=== PATIENT | female | born 1945 | race Caucasian/White ===

== ENCOUNTER 2016-09-02 12:33 | Emergency (ER) | payer OTHER ==
[2016-09-02 13:13] VITALS: BP 149/82
--- NOTE | 2016-09-02 14:24 | RAD ---
INDICATION: Lower extremity injury COMPARISON: None TECHNIQUE: AP, lateral, and oblique views were obtained. FINDINGS: The bony structures, joint spaces, and soft tissues are normal for age. IMPRESSION: NO ACUTE BONY FINDINGS OF THE LOWER LEG.
--- NOTE | 2016-09-02 14:24 | RAD ---
INDICATION: Left ankle injury COMPARISON: None TECHNIQUE: AP, lateral, and oblique views were obtained. FINDINGS: There is no acute bony change. There are corticated ossific densities about both medial and lateral malleolar I and there are mild irregular is about the lateral talar dome. A small osteochondral type injury is not excluded. There is a large plantar calcaneal spur. There is an effusion. IMPRESSION: EVIDENCE OF OLD POST TRAUMATIC INJURY. POSSIBLE OSTEOCHONDRAL TYPE INJURY LATERAL TALAR DOME.
--- NOTE | 2016-09-02 16:03 | UC ---
Lower Extremity/Ankle HPI - HPI Summary HPI Summary: left lateral ankle painhas been going on for 2 weeks with swelling after falling while mowing the lawn - History of Current Complaint Hx Obtained From: Patient Hx Last Menstrual Period: POST MENOPAUSE ?: No Onset/Duration: Sudden Onset, Still Present Severity Initially: Moderate Severity Currently: Moderate Pain Intensity: 4 Pain Scale Used: 0-10 Numeric Aggravating Factor(s): Standing, Ambulation Alleviating Factor(s): Rest, Elevation Able to Bear Weight: Yes <Bernice Simmons - Last Filed: 09/04/16 16:14> <Jazmin Ruiz - Last Filed: 09/04/16 18:43> - History of Current Complaint Chief Complaint: UCLowerExtremity Stated Complaint: ANKLE INJURY Time Seen by Provider: 09/02/16 15:15 - Allergies/Home Medications Allergies/Adverse Reactions: Allergies Allergy/AdvReac Type Severity Reaction Status Date / Time No Known Allergies Allergy Verified 09/02/16 13:13 Home Medications: Home Medications NK [No Home Medications Reported] 09/02/16 [History Confirmed 09/02/16] PMH/Surg Hx/FS Hx/Imm Hx Previously Healthy: Yes - Surgical History Surgical History: None - Family History Known Family History: Positive: Hypertension - Social History Occupation: Employed Full-time Lives: With Family Alcohol Use: Rare Substance Use Type: None Smoking Status (MU): Never Smoked Tobacco <Bernice Simmons - Last Filed: 09/04/16 16:14> Review of Systems Constitutional: Negative Skin: Negative Eyes: Negative ENT: Negative Respiratory: Negative Cardiovascular: Negative Gastrointestinal: Negative Genitourinary: Negative Motor: Negative Neurovascular: Negative Musculoskeletal: Arthralgia - left lateral ankle pain Neurological: Negative Psychological: Negative All Other Systems Reviewed And Are Negative: Yes <Bernice Simmons - Last Filed: 09/04/16 16:14> Physical Exam Triage Information Reviewed: Yes Appearance: Well-Appearing, No Pain Distress, Well-Nourished Vital Signs: Initial Vital Signs Temp 98.2 F 09/02/16 13:07 Pulse 77 09/02/16 13:07 Resp 20 09/02/16 13:07 BP 149/82 09/02/16 13:07 Pulse Ox 98 09/02/16 13:07 Vital Signs Reviewed: Yes Eye Exam: Normal Eyes: Positive: Conjunctiva Clear ENT Exam: Normal ENT: Positive: Normal ENT inspection, Hearing grossly normal. Negative: Nasal congestion, Nasal drainage, Trismus, Muffled/hoarse voice Dental Exam: Normal Neck exam: Normal Neck: Positive: Supple, Nontender Respiratory Exam: Normal Respiratory: Positive: Chest non-tender, No respiratory distress, No accessory muscle use Cardiovascular Exam: Normal Cardiovascular: Positive: RRR, Pulses Normal, Brisk Capillary Refill Musculoskeletal Exam: Normal Musculoskeletal: Positive: Strength Intact, ROM Intact, Edema @ - left lateral ankle Neurological Exam: Normal Neurological: Positive: Alert, Muscle Tone Normal Psychological Exam: Normal Skin Exam: Normal <Bernice Simmons - Last Filed: 09/04/16 16:14> Vital Signs: Initial Vital Signs Temp 98.2 F 09/02/16 13:07 Pulse 77 09/02/16 13:07 Resp 20 09/02/16 13:07 BP 149/82 09/02/16 13:07 Pulse Ox 98 09/02/16 13:07 <Jazmin Ruiz - Last Filed: 09/04/16 18:43> Diagnostics - Laboratory Diagnostic Studies Completed/Ordered: CT scan Alba type 1 nondisplaced avulsion fracture lateral malleolus <Bernice Simmons - Last Filed: 09/04/16 16:14> Lower Extremity Course/Dx - Course Course Of Treatment: rice, cam boot, nsaids, follow with ortho - Differential Dx/Diagnosis Differential Diagnosis/HQI/PQRI: Contusion, Fracture (Closed), Sprain, Strain Provider Diagnoses: left ankle nondisplaced avulsion fracture <Bernice Simmons - Last Filed: 09/04/16 16:14> Discharge <Bernice Simmons - Last Filed: 09/04/16 16:14> <Jazmin Ruiz - Last Filed: 09/04/16 18:43> - Discharge Plan Condition: Stable Disposition: HOME Patient Education Materials: Ankle Fracture (ED), RICE Therapy (ED), Avulsion Fracture (ED) Referrals: Davina Hensley MD [Medical Doctor] - Kvng Rebolledo MD [Primary Care Provider] - Additional Instructions: Your HAve a Alba Type A avulsion fracture of the Lateral Ankle----Treated with a CAM boot and symptomatic care Attestation Statement User Type: Provider - I was available for consult. This patient was seen by the CAMILA. The patient was not presented to, seen by, or examined by me. -Warren <Jazmin Ruiz - Last Filed: 09/04/16 18:43>
--- NOTE | 2016-09-02 16:15 | RAD ---
Indication: Pain following injury. Assess noted lesion at lateral dome of the talus. Comparison: April 05, 2016 radiographs. Technique: Noncontrast CT LEFT ankle and foot. Multiplanar reformation. Report: Normal articular alignment. Subtle nondisplaced avulsion fracture at the lateral malleolus below the dome of the talus consistent with a Alba type A fracture pattern. No additional fracture evident about the ankle or foot. Talocrural joint effusion without gross fat fluid level. Small focus of subchondral sclerosis and cystic change at the superior lateral margin of the dome of the talus consistent with a tiny osteochondral lesion without suggestion of presence of an unstable osteochondral fragment. Small accessory ossicle or sequela of previous traumatic injury inferior to the lateral malleolus. Small accessory ossicle adjacent to the posterior medial margin of the navicula/os tibiale externum. Minimal Achilles tendon insertion and plantar fascia origin bone spurs. Moderately severe osteophytosis and joint space narrowing as well as subchondral sclerosis and cystic change at the first metatarsal phalangeal joint and articulation with the subjacent sesamoids of the flexor hallucis brevis. Soft tissue swelling over the lateral malleolus. IMPRESSION: 1. Nondisplaced Alba type A avulsion fracture of the lateral malleolus. 2. Chronic tiny osteochondral lesion at the superior lateral margin of the dome of the talus without suggestion of presence of an unstable fragment. 3. Normal articular alignment at the talocrural joint and throughout the [id number]. 4. Talocrural joint effusion. 5. 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
== END 2016-09-02 16:37 | disposition home or self-care (01) ==
LOC: UCEAST 12:33
DX: S82.65XA Nondisplaced fracture of lateral malleolus of left fibula, initial encounter for closed fracture (principal); W18.30XA Fall on same level, unspecified, initial encounter; Y93.H9 Activity, other involving exterior property and land maintenance, building and construction; Y92.9 Unspecified place or not applicable
CPT/HCPCS: 99212; G0463

== ENCOUNTER 2017-07-06 15:40 | Emergency (ER) | payer OTHER ==
[2017-07-06 15:58] VITALS: BP 153/91
--- NOTE | 2017-07-06 16:11 | UC ---
Skin Complaint HPI - HPI Summary HPI Summary: tick bite on left arm---was attached for 2-3 days and was removed yesterday--- dime size erythema around site - History of Current Complaint Chief Complaint: UCSkin Time Seen by Provider: 07/06/17 15:49 Stated Complaint: BUG BITE Hx Obtained From: Patient Hx Last Menstrual Period: post ?: No Onset/Duration: Sudden Onset Pain Intensity: 0 Pain Scale Used: 0-10 Numeric Location: Discrete Aggravating Factor(s): Nothing Alleviating Factor(s): Nothing Associated Signs & Symptoms: Positive: Negative Related History: Possible Reaction to: Insect - Allergy/Home Medications Allergies/Adverse Reactions: Allergies Allergy/AdvReac Type Severity Reaction Status Date / Time No Known Allergies Allergy Verified 07/06/17 15:58 Home Medications: Home Medications Fluorometholone 0.1% OPTH.DANYELLE* 1 drop OPHTHALMIC SEE INSTRUCTIONS 07/06/17 [ History Confirmed 07/06/17] prednisoLONE 1% OPHTH.SUSP* 1 drop OPHTHALMIC QID 07/06/17 [History Confirmed ] Review of Systems Constitutional: Negative Skin: Other - dime size erythmea at site of Tick bite on left forearm Eyes: Negative ENT: Negative Respiratory: Negative Cardiovascular: Negative Gastrointestinal: Negative Genitourinary: Negative Motor: Negative Neurovascular: Negative Musculoskeletal: Negative Neurological: Negative Psychological: Negative Is Patient Immunocompromised?: No All Other Systems Reviewed And Are Negative: Yes PMH/Surg Hx/FS Hx/Imm Hx Previously Healthy: Yes - Surgical History Surgical History: Yes Surgery Procedure, Year, and Place: left hand surgery, left eye surgery- "surfer 's eye" - Family History Known Family History: Positive: Hypertension - Social History Occupation: Employed Full-time Lives: With Family Alcohol Use: Rare Substance Use Type: None Smoking Status (MU): Never Smoked Tobacco Physical Exam Triage Information Reviewed: Yes Appearance: Well-Appearing, No Pain Distress, Well-Nourished Vital Signs: Initial Vital Signs Temp 99.4 F 07/06/17 15:49 Pulse 88 07/06/17 15:49 Resp 15 07/06/17 15:49 BP 153/91 07/06/17 15:49 Pulse Ox 99 07/06/17 15:49 Vital Signs Reviewed: Yes Eye Exam: Normal Eyes: Positive: Conjunctiva Clear ENT Exam: Normal ENT: Positive: Normal ENT inspection, Hearing grossly normal, Pharynx normal. Negative: Trismus, Muffled voice, Hoarse voice Dental Exam: Normal Neck exam: Normal Neck: Positive: Supple, Nontender Respiratory Exam: Normal Respiratory: Positive: Chest non-tender, No respiratory distress, No accessory muscle use Cardiovascular Exam: Normal Cardiovascular: Positive: RRR, Pulses Normal, Brisk Capillary Refill Musculoskeletal Exam: Normal Neurological Exam: Normal Neurological: Positive: Alert, Muscle Tone Normal, Fatigued Psychological Exam: Normal Psychological: Positive: Normal Response To Family Skin Exam: Normal Skin: Positive: Other - dime size erythema around tick bite on left forearm Course/Dx - Course Course Of Treatment: Doxycycline 200 mg po times 1 now. Follow Blood pressure with pcp, observe for s/s of LYme and follow with pcp - Diagnoses Provider Diagnoses: Tick exposure with Lyme PEP Discharge - Sign-Out/Discharge Documenting (check all that apply): Discharge/Admit/Transfer - Discharge Plan Condition: Stable Disposition: HOME Prescriptions: DOXYcycline CAP(*) [DOXYcycline 100MG CAP(*)] 200 mg PO DAILY #2 cap Patient Education Materials: Tick Bite (ED), Hypertension (ED) Referrals: Kvng Rebolledo MD [Primary Care Provider] - 2 Weeks - Billing Disposition and Condition Condition: STABLE Disposition: HOME
== END 2017-07-06 16:15 | disposition home or self-care (01) ==
LOC: UCEAST 15:40
DX: S50.862A Insect bite (nonvenomous) of left forearm, initial encounter (principal); W57.XXXA Bitten or stung by nonvenomous insect and other nonvenomous arthropods, initial encounter; Y93.9 Activity, unspecified; Y92.9 Unspecified place or not applicable
CPT/HCPCS: 99212; G0463

== ENCOUNTER 2018-08-04 17:56 | Emergency (ER) | payer OTHER ==
[2018-08-04 18:31] VITALS: BP 151/83
--- NOTE | 2018-08-04 19:04 | UC ---
Skin Complaint HPI - HPI Summary HPI Summary: 73 y/o female presents to the urgent care c/o tick bit in her Rt breast. She removed tick yesterday morning as soon as she noticed. she has has 4 tick bites this past month and is concerned about Lyme disease. She hasn't gotten the prophylactic treatment for Lyme in the previous tick bites. Tick was engorged and is not sure how long it has been there since she goes out everyday. She notice a red rash around tick bite. Pt denies fever, BARNES, joint pain, SOb chest pain, abdominal pain, N/V/D. - History of Current Complaint Chief Complaint: UCSkin Time Seen by Provider: 08/04/18 18:54 Stated Complaint: TICK Hx Obtained From: Patient Hx Last Menstrual Period: post ?: No Onset/Duration: Sudden Onset, Lasting Days - 1 day, Resolved - tick removed yesterday as soon as noticed, Worse Since - this morning Skin Exposure Onset/Duration: Days Ago - probably 1 day Timing: Constant Onset Severity: Mild Current Severity: Mild Pain Intensity: 1 Pain Scale Used: 0-10 Numeric Location: Discrete - medial aspect of Rt breast Character: Pruritus, Redness Aggravating Factor(s): Touch Alleviating Factor(s): Other - tick removal Associated Signs & Symptoms: Positive: Rash - Rt breast w/ tick bite, Tenderness - mild. Negative: Fever, Chills, Drainage, Bruising Related History: Possible Reaction to: Insect - tick - Allergy/Home Medications Allergies/Adverse Reactions: Allergies Allergy/AdvReac Type Severity Reaction Status Date / Time No Known Allergies Allergy Verified 08/04/18 18:31 Home Medications: Home Medications Propylene Glycol/Peg 400/Pf [Systane 0.3-0.4% Eye Drops] 1 each OP 08/04/18 [ History] PMH/Surg Hx/FS Hx/Imm Hx Previously Healthy: Yes - Pt denies PMHX - Surgical History Surgical History: Yes Surgery Procedure, Year, and Place: left hand surgery, left eye surgery- "surfer 's eye" - Family History Known Family History: Positive: Hypertension - Social History Occupation: Retired Lives: With Family Alcohol Use: Occasionally Substance Use Type: None Smoking Status (MU): Never Smoked Tobacco Review of Systems All Other Systems Reviewed And Are Negative: Yes Constitutional: Positive: Negative Skin: Positive: Other - RT breast tick bite, tick no longer present Eyes: Positive: Negative ENT: Positive: Negative Respiratory: Positive: Negative Cardiovascular: Positive: Negative Gastrointestinal: Positive: Negative Genitourinary: Positive: Negative Motor: Positive: Negative Neurovascular: Positive: Negative Musculoskeletal: Positive: Negative Neurological: Positive: Negative Psychological: Positive: Negative Is Patient Immunocompromised?: No Physical Exam - Summary Physical Exam Summary: Vital Signs Reviewed: Yes General: well developed, well nourished female sitting in the examining table w/ o any apparent distress. Eyes: Positive: Conjunctiva Clear - PERRLA, EOMI ENT: Positive: Normal ENT inspection, Hearing grossly normal, Pharynx normal, TMs normal Neck: Positive: Supple, Nontender, No Lymphadenopathy Respiratory: Positive: Chest nontender, Lungs clear, Normal breath sounds Cardiovascular: Positive: RRR, No Murmur, Pulses Normal Abdomen Description: Positive: Nontender, No Organomegaly, Soft. Negative: CVA Tenderness (R), CVA Tenderness (L) Bowel Sounds: Positive: Present Musculoskeletal: Positive: Strength Intact, ROM Intact, No Edema Neurological Exam: Normal Psychological Exam: Normal Skin: Positive: rashes - medial aspect of RT breast with tick bite with surrounding erythema, non tender to palpation. tick no longer present, no swelling or drainage observed. Triage Information Reviewed: Yes Vital Signs: Initial Vital Signs Temp 97.8 F 08/04/18 18:28 Pulse 75 08/04/18 18:28 Resp 18 08/04/18 18:28 BP 151/83 08/04/18 18:28 Pulse Ox 100 08/04/18 18:28 Course/Dx - Course Course Of Treatment: 73 y/o female presents to the urgent care c/o tick bit in her Rt breast. She removed tick yesterday morning as soon as she noticed. she has has 4 tick bites this past month and is concerned about Lyme disease. She hasn't gotten the prophylactic treatment for Lyme in the previous tick bites. Tick was engorged and is not sure how long it has been there since she goes out everyday. She notice a red rash around tick bite. Pt deneis fever, BARNES, joint pain, SOb chest pain, abdominal pain, N/V/D. Hx obtained. Pt w/ Tick bite in the medial aspect of Rt breast on examination. the skin cleaned w/ alcohol swabs and Bacitracin oint applied over. Antibiotic prophylaxis with Doxycycline given to the patient to prevent lyme Disease.. Pt tolerated well medication. Pt advised to observe the area for the development or Erythema Migrans for upto 30 days following exposure. Advised if he develops fever or erythema Migrans to return to the clinic or PCP for further treatment .Pt's BP is elevated today advised to decrease salt in diet, monitor BP and f/u with PCP for further management.Pt understood and agreed with plan of care. - Differential Diagnoses - Skin Complaint Differential Diagnoses: Abscess, Cellulitis, Contact Dermatitis, Local Allergic Reaction, Tick Born Illness, Other - insect bite bee sting - Diagnoses Provider Diagnosis: Tick bite of female breast, Elevated BP without diagnosis of hypertension Discharge - Sign-Out/Discharge Documenting (check all that apply): Patient Departure - d/C home All imaging exams completed and their final reports reviewed: No Studies - Discharge Plan Condition: Stable Disposition: HOME Patient Education Materials: Tick Bite (ED) Referrals: Kvng Rebolledo MD [Primary Care Provider] - 2 Weeks Roslyn ARRINGTON,Rakesh Torres [Medical Doctor] - If Needed Additional Instructions: 1- Please observe the area for the development or Erythema Migrans for upto 30 days following exposure. Components of the tick saliva can cause transient erythema that should not be confused with Erythema Migrans. If you develop the bull's eye rash, fever, joint pains please return to the urgent care or f/u with your PCP or Dr Mcgowan for further management. Apply Bacitracin oint around tick bite 2x/day as directed 2-Antibiotic prophylaxis with Doxycycline was given to you today to prevent lyme Disease. Lyme serology can be drawn in 2 weeks with your PCP to r/o Lyme disease since there is probability of negative results at early exposure. 3- Your BP is elevated today. please decrease salt in your diet, monitor BP and if it continues to be elevated please f/u with your PCP in 3 days for further management. - Billing Disposition and Condition Condition: STABLE Disposition: Home - Attestation Statements Provider Attestation: I was available for consult. This patient was seen by the CAMILA. The patient was not presented to, seen by, or examined by me. -Warren
[2018-08-04] MEDS ORDERED: DOXYcycline CAP(*) 100 MG PO ONE (19:06)
== END 2018-08-04 19:26 | disposition home or self-care (01) ==
LOC: UCEAST 17:56
DX: S20.161A Insect bite (nonvenomous) of breast, right breast, initial encounter (principal); W57.XXXA Bitten or stung by nonvenomous insect and other nonvenomous arthropods, initial encounter; Y92.9 Unspecified place or not applicable; R03.0 Elevated blood-pressure reading, without diagnosis of hypertension
CPT/HCPCS: 99212; A9270-GY; G0463

== ENCOUNTER 2018-12-13 20:38 | Emergency (ER) | payer MEDICARE, OTHER ==
--- OUTSIDE RECORDS SUMMARY | 2018-12-13 20:46 | XMS REPORT | Continuity of Care Document ---
:1945 External Reference #:[id number] Author Name Devante Gaffney MD Address [address] [place] [id number] Care Team Providers Name Role Phone Kvng Rebolledo MD Care Team Information [employer] Operator [phone] Problems Active Problems Provider Date Recurrent pterygium Devante Gaffney MD Onset: 06/19/2017 Vitreous opacities Devante Gaffney MD Onset: 10/29/2018 Corneal endothelial dystrophy Devante Gaffney MD Onset: 10/08/2017 Nuclear senile cataract Devante Gaffney MD Onset: 10/08/2017 Social History Type Date Description Comments Sex Unknown Allergies, Adverse Reactions, Alerts Description No Known Drug Allergies Medications Active Medications SIG Qnty Indications Ordering Date Provider FML Liquifilm 1 drop into the 10units Devante Pernell 07/10/2017 0.1% left eye 4 times Gulshan ARRINGTON Suspension a day Fluorometholone 1 drop left eye 10ml Devante Gimenez 06/19/2017 0.1% 6 times a day as Gulshan ARRINGTON Suspension directed Pred Forte Instill 1 drop 5units Devante Pernell 05/28/2017 1% Suspension into left eye Gulshan ARRINGTON four times a day as directed Aspirin Ec 2-3 per week Unknown 325mg Tablets DR Immunizations Description No Information Available Vital Signs Date Vital Result Comment 10/29/2018 8:13am Intraocular Pressure Right Eye 18 mmHg Tp 08:13 Am Intraocular Pressure Left Eye 18 mmHg 05/04/2018 7:42am Intraocular Pressure Right Eye 14 mmHg Tp 07:42 Am Intraocular Pressure Left Eye 14 mmHg Results Description No Information Available Procedures Date Code Description Status 10/29/2018 57295 Exam, Comprehensive, Est PT Completed Medical Devices Description No Information Available Encounters Type Date Location Provider Dx Diagnosis Office Visit 05/04/2018 Main Office Devante Gaffney H11.062 Recurrent pterygium 7:30a MD of left eye 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 H25.13 Age-related nuclear cataract, bilateral Assessments Date Code Description Provider 10/29/2018 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 Devante Gaffney MD 10/29/2018 H11.062 Recurrent pterygium of left eye Devante Gaffney MD 10/29/2018 H25.13 Age-related nuclear cataract, bilateral Devante Gaffney MD 10/29/2018 H43.391 Other vitreous opacities, right eye Devante Gaffney MD 05/04/2018 H11.062 Recurrent pterygium of left eye Devante Gaffney MD 05/04/2018 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 Follow. Functional Status Description No Information Available Mental Status Description No Information Available Referrals Description No Information Available
[2018-12-13 20:55] VITALS: BP 148/79
[2018-12-13] MEDS ORDERED: DOXYcycline CAP(*) 100 MG PO ONE (21:05)
--- NOTE | 2018-12-13 21:08 | UC ---
Skin Complaint HPI - HPI Summary HPI Summary: 73 yo female has been raking leaves the past few days last pm had slight discomfort left eye eyelid tonight noticed a tick - History of Current Complaint Chief Complaint: UCSkin Time Seen by Provider: 12/13/18 20:48 Stated Complaint: TICK Hx Obtained From: Patient Hx Last Menstrual Period: post Onset/Duration: Gradual Onset, Other - ? Onset Severity: Mild Current Severity: Mild Pain Intensity: 1 Pain Scale Used: 0-10 Numeric Location: Other - right upper lid Character: Redness Related History: Insect Bite/Sting - Allergy/Home Medications Allergies/Adverse Reactions: Allergies Allergy/AdvReac Type Severity Reaction Status Date / Time No Known Allergies Allergy Verified 12/13/18 20:55 PMH/Surg Hx/FS Hx/Imm Hx Previously Healthy: Yes - Surgical History Surgical History: Yes Surgery Procedure, Year, and Place: left hand surgery, left eye surgery- "surfer 's eye" - Family History Known Family History: Positive: Hypertension, Non-Contributory - Social History Alcohol Use: Weekly Alcohol Amount: couple glasses a week Substance Use Type: None Smoking Status (MU): Never Smoked Tobacco Review of Systems All Other Systems Reviewed And Are Negative: Yes Constitutional: Positive: Negative Skin: Positive: Negative Eyes: Positive: Negative ENT: Positive: Negative Respiratory: Positive: Negative Cardiovascular: Positive: Negative Gastrointestinal: Positive: Negative Genitourinary: Positive: Negative Motor: Positive: Negative Neurovascular: Positive: Negative Musculoskeletal: Positive: Negative Neurological: Positive: Negative Psychological: Positive: Negative Physical Exam Triage Information Reviewed: Yes Appearance: Well-Appearing, No Pain Distress, Well-Nourished Vital Signs: Initial Vital Signs Temp 99.1 F 12/13/18 20:49 Pulse 65 12/13/18 20:49 Resp 18 12/13/18 20:49 BP 148/79 12/13/18 20:49 Pulse Ox 97 12/13/18 20:49 Eye Exam: Normal Eyes: Positive: Conjunctiva Clear ENT: Positive: Hearing grossly normal. Negative: Nasal congestion, Nasal drainage, Trismus, Muffled voice, Hoarse voice Neck: Positive: Supple, Nontender, No Lymphadenopathy Respiratory: Positive: Lungs clear, Normal breath sounds, No respiratory distress, No accessory muscle use Cardiovascular: Positive: RRR, No Murmur Musculoskeletal: Positive: No Edema Neurological: Positive: Alert Psychological Exam: Normal Skin Exam: Other - tick noted right upper eyelid-slight erthyema surrounding tick with slight lid edema Course/Dx - Course Course Of Treatment: tick removed from right upper eye lid in toto using a tick twister - Diagnoses Provider Diagnosis: Tick bite with subsequent removal of tick, Risk of exposure to Lyme disease, Elevated BP without diagnosis of hypertension Discharge ED - Sign-Out/Discharge Documenting (check all that apply): Patient Departure All imaging exams completed and their final reports reviewed: No Studies - Discharge Plan Condition: Stable Disposition: HOME Patient Education Materials: Tick Bite (ED) Referrals: Kvng Rebolledo MD [Primary Care Provider] - 2 Weeks (need bp recheck) Additional Instructions: take two doxy tonight with food - Billing Disposition and Condition Condition: STABLE Disposition: Home
== END 2018-12-13 21:22 | disposition home or self-care (01) ==
LOC: UCEAST 20:38
DX: S00.261A Insect bite (nonvenomous) of right eyelid and periocular area, initial encounter (principal); R03.0 Elevated blood-pressure reading, without diagnosis of hypertension; Z20.818 Contact with and (suspected) exposure to other bacterial communicable diseases; W57.XXXA Bitten or stung by nonvenomous insect and other nonvenomous arthropods, initial encounter; Y92.9 Unspecified place or not applicable
CPT/HCPCS: 99212; A9270-GY; G0463